=== PATIENT | female | born 1995 | race Caucasian/White ===

== ENCOUNTER 2017-06-28 22:55 | Emergency (ER) | payer BC, OTHER ==
[~2017-06-28] VITALS: Ht 160 cm; Wt 69.6 kg
[~2017-06-28 22:55] MED LIST: BCPILLS PO; SERT-234 PO
[2017-06-28 22:59] VITALS: TEMP 36.8; Ht 160 cm; Wt 69.6 kg
[2017-06-28] MEDS ORDERED: METHYLPREDNISOLONE 125 MG VIAL IV STA (23:14)
[2017-06-28] MEDS ORDERED: DiphenhydrAMINE HCL 50 MG/ML VIAL IV STA (23:14)
[2017-06-28] MEDS ORDERED: RANITIDINE HCL 150 MG TAB PO ONE (23:15)
[2017-06-29] MEDS ORDERED: IUD'IUD INT UTER (00:07)
[2017-06-29 00:58] VITALS: BP 116/72; PULSE 78; O2SAT 100
[2017-06-29] MEDS ORDERED: PRED50TA PO (01:20)
--- NOTE | 2017-06-29 05:32 | EMERGENCY ROOM VISIT NOTE ---
History First contact with patient: 23:04 Chief Complaint: ALLERGIC REACTION Stated Complaint: ALLERGIC REACTION,RASH Nursing Triage Summary: Patient reports that she recently started taking diflucan for rash, rash has gotten worse and spread from thigh to arm pit. Patient denies breathing problems. History of Present Illness The patient is a 21 year old female who presents to the Emergency Room with complaints of rash on her legs, abdomen, chest, and arms began worsening tonight. The patient was recently seen by her primary care physician for tinea versicolor. She was started on Diflucan, and took 2 days of the medication. She began developing the rash shortly after taking the Diflucan. She does not have distinct chest pain, chest tightness, or shortness of breath. No abdominal pain. She does feel some mild discomfort in her throat, but is able to breathe has normal. She has not taken anything tonight for an allergic reaction. She rates her discomfort a 2/10. Review of Systems More than 10 systems were reviewed and otherwise negative with the exception of history of present illness. 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 Vital signs stable. GENERAL: Well-developed, well-nourished, white female, who is in no acute distress and resting comfortably. Patient is cooperative with the examination. MOUTH: Mucous membranes moist. Tonsils are not enlarged. Pharynx without erythema, blood, or exudate. Uvula midline. Airway patent. NECK: Supple without nuchal rigidity. No lymphadenopathy. No thyromegaly. Cervical spine is nontender. HEART: Regular rate and rhythm without murmurs gallops or rubs. LUNGS: Clear to auscultation bilaterally without wheezes, rales or rhonchi. No retractions or accessory muscle use. ABDOMEN: Positive normal bowel sounds x 4. Soft, nontender, without masses or organomegaly. No guarding or rebound tenderness. SKIN: The skin was with diffuse rash particularly on the proximal thighs, abdomen, anterior chest, and into the axilla. Rash is a faint maculopapular like rash. This does not appear cellulitic. There are scattered urticaria Medical Decision & Procedures Medications Administered Medications (Trade) Dose Ordered Sig/Anh Route Start Time Stop Time Status Last Admin Dose Admin Diphenhydramine HCl (Benadryl Inj) 50 mg NOW STAT IV 06/28/17 23:14 06/28/17 23:15 DC 06/28/17 23:35 50 MG Methylprednisolone Sodium Succinate (Solu-Medrol IV) 125 mg NOW STAT IV 06/28/17 23:14 06/28/17 23:15 DC 06/28/17 23:35 125 MG Ranitidine HCl (zANTac TAB) 150 mg NOW ONCE PO 06/28/17 23:15 06/28/17 23:16 DC 06/28/17 23:35 150 MG ED Course Physical exam and history were performed. Nursing notes, EMR, and Medication List were personally reviewed. Patient appears to have allergic reaction, likely to Diflucan that she started 2 days ago. The patient does not appear in anaphylaxis. An IV was established and the patient was given IV Solu-Medrol, IV Benadryl, and oral Zantac. She was placed on the groundwater monitoring technician. The patient was monitored for greater than 2 hours here in the emergency department. Her symptoms significantly improved after medication here in the department. I discussed options of care, the patient is comfortable with discharge home. I will give her a course of prednisone for the next few days. She is to stop the Diflucan. She was otherwise given discharge instructions as below and invited back to the ER with any new, worsening, or concerning symptoms. The chart was completed utilizing [employer] Voice Recognition Software. Grammatical errors, random word insertions, pronoun errors, and incomplete sentences are an occasional consequence of this system due to software limitations, ambient noise, and hardware issues. Any formal questions or concerns about the content, text, or information contained within the body of this dictation should be directly addressed to the provider for clarification. . Medical Decision Differential diagnosis: Etiologies such as allergic reaction, anaphylaxis, urticaria, Jamison-Timmy syndrome, toxic epidermal necrolysis, erythema multiforme, cellulitis, as well as others were entertained. Impression Primary Impression: Allergic reaction Departure Information Dispostion Home / Self-Care Condition GOOD Prescriptions Prednisone (Prednisone) 50 Mg Tab 50 MG PO DAILY for 4 Days, #4 TAB Prov: Mikey Alfonso PA-C 06/29/17 Referrals No Doctor, Assigned (PCP) Forms HOME CARE DOCUMENTATION FORM, IMPORTANT VISIT INFORMATION Patient Instructions My [facility] Additional Instructions You were seen and evaluated today on an emergency basis only. This is not a substitute for, or an effort to provide, complete comprehensive medical care. It is not possible to recognize and treat all injuries or illnesses in a single emergency department visit. For this reason it is recommended that you followup with your primary care physician or [facility] this week for ongoing care and evaluation. Take prednisone as prescribed. Use Benadryl 25 to 50 mg every 6 hours as needed for breakthrough itching Stop your Diflucan You are welcome to return to the emergency department anytime with new, worsening, or concerning symptoms.
== END 2017-06-29 01:28 | disposition home or self-care (01) ==
LOC: C.EDB 22:56
DX: T78.40XA Allergy, unspecified, initial encounter (principal); X58.XXXA Exposure to other specified factors, initial encounter; F42.9 Obsessive-compulsive disorder, unspecified; Z79.3 Long term (current) use of hormonal contraceptives

== ENCOUNTER 2018-03-22 02:10 | Emergency (ER) | payer BC ==
[~2018-03-22] VITALS: Ht 160 cm; Wt 69.6 kg
[~2018-03-22 02:10] MED LIST changes: +IUD'IUD INT UTER; -SERT-234 PO
[2018-03-22 02:15] VITALS: Ht 160 cm; Wt 69.6 kg
--- NOTE | 2018-03-22 02:47 | EMERGENCY ROOM VISIT NOTE ---
History First contact with patient: 02:17 Chief Complaint: ABDOMINAL PAIN Stated Complaint: PAIN IN UTERUS FROM IUD Nursing Triage Summary: sharp stabing pains in pelvic area. pt states she thinks her iud is not in the right placed History of Present Illness The patient is a 22 year old female who presents to the Emergency Room with complaints of pelvic pain. The patient believes that her IUD is misplaced. She states that she had a ParaGard IUD inserted 2 years ago. She states that she has had intermittent pelvic pain since the IUD insertion. She reports the pain has increased recently. She states it is a stabbing sensation and rates the discomfort a 5/10. Her pain is increased tonight. She has also had breakthrough bleeding since the IUD was inserted. She also takes control pills. She denies abnormal vaginal discharge or urinary symptoms. Review of Systems A complete 10 point review of systems was reviewed with the patient with pertinent positives and negatives as per history of present illness. All else were negative. 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 Vital signs stable. GENERAL: This is a 22-year-old female, in no acute distress, nondiaphoretic, well-developed well-nourished. HEART: Regular rate and rhythm without murmurs gallops or rubs. LUNGS: Clear to auscultation bilaterally without wheezes, rales or rhonchi. ABDOMEN: Positive bowel sounds x 4. Soft, mild tenderness in the left lower quadrant. No guarding or rebound tenderness. NEURO: Patient was alert and oriented to person place and time. Medical Decision & Procedures ER Provider Diagnostic Interpretation: US PELVIC/ENDOVAG: Retroverted retroflexed uterus with an intrauterine device seen in place. The ovaries are unremarkable. No free fluid. Radiologist: Ned Maloney M.D. Medical Decision Differential diagnosis includes misplaced IUD, IUD migration, ovarian cyst, ectopic , among others. The patient was evaluated as above. She has been having pain intermittently since her IUD was placed. Pelvic ultrasound was performed and read by statrad as above. The patient's IUD appears to be in place. She was given information for [facility] follow-up and may see them to have it removed. She verbalized understanding of my assessment and treatment plan and was discharged home in good condition. Medication Reconcilliation Current Medication List: was personally reviewed by me Blood Pressure Screening Patient's blood pressure: Normal blood pressure Impression Primary Impression: Pelvic pain Departure Information Dispostion Home / Self-Care Condition GOOD Referrals No Doctor, Assigned (PCP) Norma Del Cid M.D. Patient Instructions My [facility] Additional Instructions Follow-up with [facility] for further evaluation of your symptoms and possible IUD removal. For pain control, you can use the following [id number] medicines (if >12 yo): - Regular strength (325mg/tab) Tylenol (acetaminophen) 2 tabs every 4-6 hours as needed. Do not exceed 12 tablets in a 24 hour period. Avoid taking more than 4 grams (4000 mg) of Tylenol per day. This includes any other sources of acetaminophen you may take on a regular basis. - Regular strength (200 mg/tab) Advil (ibuprofen) 1-2 tabs every 4-6 hours as needed. Do not exceed a dose of 3200 mg per day. Return to the emergency department with worsening pain, abnormal vaginal discharge, or any other new/concerning symptoms.
[2018-03-22 05:25] VITALS: BP 122/64; PULSE 70; TEMP 36.6; O2SAT 98
--- NOTE | 2018-03-22 06:30 | DIAGNOSTIC IMAGING REPORT ---
PELVIC COMPLETE NON OB CLINICAL HISTORY: left pelvic pain, iud PAIN COMPARISON STUDY: None FINDINGS: The uterus measured 7.3 cm maximum dimension. A retroflexed configuration. Intrauterine device within the central canal.. The endometrial stripe measured 5 mm. The right ovary measured 2.6 cm maximum dimension with normal vascular flow. The left ovary measured 3.1 cm maximum dimension with normal vascular low. There is no ultrasonographic evidence of ovarian torsion. It should be noted that ovarian torsion can be present with normal Doppler ultrasonographic findings. There was no evidence of pathologic free pelvic fluid. IMPRESSION: Normal study. Intrauterine device in good position. Retroflexed uterus. The above report was generated using voice recognition software. It may contain grammatical, syntax or spelling errors. Electronically signed by: Danial Napier M.D. 03/22/2018 6:29 AM Dictated Date/Time: 03/22/2018 6:28 AM
== END 2018-03-22 05:26 | disposition home or self-care (01) ==
LOC: C.EDB 02:12
DX: R10.2 Pelvic and perineal pain (principal); Z97.5 Presence of (intrauterine) contraceptive device; Z79.3 Long term (current) use of hormonal contraceptives